=== PATIENT | male | born 1985 | race African-American/Black ===

== ENCOUNTER 2021-09-07 14:38 | Emergency (ER) | payer OTHER ==
[~2021-09-07] VITALS: Ht 170.2 cm; Wt 74.0 kg
[2021-09-07] MEDS ORDERED: IBUPROFEN 600 MG TABLET. PO ONE (15:30)
--- NOTE | 2021-09-07 16:07 | RAD ---
EXAM: Chest, single view. HISTORY: Left rib pain. COMPARISON: None. FINDINGS: A frontal view of the chest obtained. There is no infiltrate, pleural effusion or pneumotho rax. The heart is normal in size. IMPRESSION: No acute osseous finding. Electronically signed by: Monse Joseph MD (09/07/2021 4:05 PM) [id number]
[2021-09-07 16:31] LABS: BASO % 1 % (0-3); EOS # 0.1 x10^3/uL (0.0-0.7); EOS % 3 % (0-3); HEMATOCRIT 44.7 % (39.0-53.0); HEMOGLOBIN 15.1 g/dL (13.0-17.5); LYMPH % 47 % (24-48); MEAN CORPUSCULAR HEMOGLOBIN 32 pg (25-35); MEAN CORPUSCULAR HGB CONC 34 g/dL (31-37); MEAN CORPUSCULAR VOLUME 96 fL (79-100); MONO # 0.4 x10^3/uL (0.0-1.1); MONO % 8 % (0-9); NEUT # 1.7 x10^3uL (1.8-7.7); NEUT % 41 % (31-73); PLATELET COUNT 270 x10^3/uL (140-400); RED BLOOD COUNT 4.65 x10^6/uL (4.30-5.70); RED CELL DISTRIBUTION WIDTH 12.9 % (11.5-14.5); WHITE BLOOD COUNT 4.2 x10^3/uL (4.0-11.0)
--- NOTE | 2021-09-07 16:33 | PHYS DOC ---
Past History Past Surgical History: No Surgical History Alcohol Use: None General Adult EDM: Chief Complaint: RIB PAIN HPI: HPI: Patient is a 36-year-old male presents with left-sided chest pain. Patient reports pain is aggravated with movement and taking a deep breath. Denies injury. Denies recent illness. Denies cough or shortness of breath. No fevers. No medical history. Denies tobacco use. Review of Systems: Review of Systems: ROS At least 10 ROS systems have been reviewed and are negative except as documented in the HPI. General: Negative except as outlined in HPI above. Skin: Negative except as outlined in HPI above. HEENT: Negative except as outlined in HPI above. Neck: Negative except as outlined in HPI above. Respiratory: Negative except as outlined in HPI above.. Cardiovascular: Negative except as outlined in HPI above. Abdomen: Negative except as outlined in HPI above. : Negative except as outlined in HPI above. Back/MSK: Negative except as outlined in HPI above. Neuro: Negative except as outlined in HPI above. Psych: Negative except as outlined in HPI above. Current Medications: Current Meds: Current Medications Medications (Trade) Dose Ordered Sig/Bert Start Time Stop Time Status Last Admin Dose Admin Ibuprofen (Motrin) 600 mg 1X ONCE 09/07/21 15:30 09/07/21 15:37 DC 09/07/21 15:30 600 MG Allergies: Allergies: Allergies Coded Allergies Type Severity Reaction Last Updated Verified No Known Drug Allergies 09/07/21 No Physical Exam: PE: Constitutional: Well developed, well nourished, no acute distress, non-toxic appearance. [] HENT: Normocephalic, atraumatic, bilateral external ears normal, oropharynx moist, no oral exudates, nose normal. [] Eyes: PERRLA, EOMI, conjunctiva normal, no discharge. [] Neck: Normal range of motion, no tenderness, supple, no stridor. [] Cardiovascular:Heart rate regular rhythm, no murmur [] Lungs & Thorax: Bilateral breath sounds clear to auscultation [] Abdomen: Bowel sounds normal, soft, no tenderness, no masses, no pulsatile masses. [] Skin: Warm, dry, no erythema, no rash. [] Back: No tenderness, no CVA tenderness. [] Extremities: No tenderness, no cyanosis, no clubbing, ROM intact, no edema. [] Neurologic: Alert and oriented X 3, normal motor function, normal sensory function, no focal deficits noted. [] Psychologic: Affect normal, judgement normal, mood normal. [] Current Patient Data: Vital Signs: Vital Signs Date Time Temp Pulse Resp B/P (MAP) Pulse Ox O2 Delivery O2 Flow Rate FiO2 09/07/21 15:09 97.5 67 16 137/72 (93) 98 Room Air EKG: EKG: [] Sinus rhythm. Heart rate 55 bpm. Radiology/Procedures: Radiology/Procedures: []EXAM: Chest, single view. HISTORY: Left rib pain. COMPARISON: None. FINDINGS: A frontal view of the chest obtained. There is no infiltrate, pleural effusion or pneumothorax. The heart is normal in size. IMPRESSION: No acute osseous finding. Electronically signed by: Monse Joseph MD (09/07/2021 4:05 PM) [id number] Exam: CT of chest with contrast INDICATION: Left-sided pain TECHNIQUE: Sequential axial images through the chest obtained following the administration of 90 mL of Isovue-370 IV contrast. Sagittal and coronal reformatted images were reconstructed from the axial data and reviewed. 3-D reformatted images were reconstructed from the axial data and reviewed. Exposure: One or more of the following in the visualized dose reduction techniques were utilized for this examination: 1. Automated exposure control 2. Adjustment of the MA and/or KV according to patient size 3. Use of iterative of reconstructive technique Comparisons: Chest x-ray same day FINDINGS: Visualized portions of the thyroid are unremarkable. No enlarged mediastinal lymph nodes are identified. Heart size is normal. No pericardial effusion. Thoracic aorta has a normal course and caliber. Pulmonary artery is not enlarged. No pulmonary embolus identified within the main, lobar or segmental pulmonary arteries. Airways are patent. No consolidation or pneumothorax. No suspicious lung nodules. No pleural effusion or thickening. Visualized upper abdomen is unremarkable. No suspicious osseous lesions or acute fractures. IMPRESSION: No pulmonary embolus identified within the main, lobar or segmental pulmonary arteries. Electronically signed by: Elizabeth Dao MD (09/07/2021 5:40 PM) [facility] Heart Score: C/O Chest Pain: Yes HEART Score for Chest Pain: HEART Score for Chest Pain Response (Comments) Value History Slighlty/Non-Suspicious 0 ECG Normal 0 Age < 45 0 Risk Factors No Risk Factors 0 Troponin < Normal Limit 0 Total 0 Risk Factors: Risk Factors: DM, Current or recent (<one month) smoker, HTN, HLP, family history of CAD, obesity. Risk Scores: Score 0 - 3: 2.5% MACE over next 6 weeks - Discharge Home Score 4 - 6: 20.3% MACE over next 6 weeks - Admit for Clinical Observation Score 7 - 10: 72.7% MACE over next 6 weeks - Early Invasive Strategies Course & Med Decision Making: Course & Med Decision Making Pertinent Labs and Imaging studies reviewed. (See chart for details) [] 36-year-old presents with left-sided chest pain. Work-up in ER consisted of chest x-ray, labs, troponin, D-dimer. All labs unremarkable. Heart score of 0. D-dimer mildly elevated. CTA ordered to rule out PE. CTA was unremarkable. Discussed results with patient. Advised patient he most likely is having chest wall pain. Ibuprofen and Tylenol for discomfort. Discussed return precautions in length with patient. Patient verbalizes understanding of discharge instructions. Luis Disclaimer: Luis Disclaimer: This electronic medical record was generated, in whole or in part, using a voice recognition dictation system. Departure Departure: Impression: Primary Impression: Chest wall pain Disposition: HOME / SELF CARE / HOMELESS Condition: STABLE Referrals: FELICIANO JOHNS MD (PCP) Patient Instructions: Chest Wall Pain, [id number] Additional Instructions: You are seen in the emergency room for chest pain. All of your labs are unremarkable. All imaging was also unremarkable. You most likely have chest wall pain. You can take ibuprofen at home to help with discomfort. Please follow-up with your PCP for further management. You need to return to the emergency room if you have worsening symptoms or concerns such as shortness of breath, increase in pain. EMERGENCY DEPARTMENT GENERAL DISCHARGE INSTRUCTIONS Thank you for coming to [facility] (ED) today and trusting us with you care. We trust that you had a positivie experience in our Emergency Department. If you wish to speak to the department management, you may call the director at [phone]. YOUR FOLLOW UP INSTRUCTIONS ARE FOLLOWS: 1. Do you have a private Doctor? If you do not have a private doctor, please ask for a resource list of physicians or clinics that may be able to assist you with follow up care. 2. The Emergency Physician has interpreted your x-rays. The X-Ray specialist will also review them. If there is a change in the findings, you will be notified in 48 hours when at all possible. 3. A lab test or culture has been done, your results will be reviewed and you will be notified if you need a change in treatment. ADDITIONAL INSTRUCTIONS AND INFORMATION: 1. Your care today has been supervised by a physician who is specially trained in emergency care. Many problems require more than one evaluation for a complete diagnosis and treatment. We recommend that you schedule your follow up appointment as recommended to ensure complete treatment of you illness or injury. If you are unable to obtain follow up care and continue to have a problem, or if your condition worsens, we recommend that you return to the ED. 2. We are not able to safely determine your condition over the phone nor are we able to give sound medical advice over the phone. For these safety reasons, if you call for medical advice we will ask you to come to the ED for further evaluation. 3. If you have any questions regarding these discharge instructions please call the ED at [phone]. SAFETY INFORMATION: In the interest of safety, wellness, and injury prevention; we encourage you to wear your sealbelt, if you smoke; quite smoking, and we encourage family to use a protective helmet for bicycling and other sporting events that present an increased risk for head injury. IF YOUR SYMPTOMS WORSEN OR NEW SYMPTOMS DEVELOP, OR YOU HAVE CONCERNS ABOUT YOUR CONDITION; OR IF YOUR CONDITION WORSENS WHILE YOU ARE WAITING FOR YOUR FOLLOW UP A PPOINTMENT; EITHER CONTACT YOUR PRIMARY CARE DOCTOR, THE PHYSICIAN WHOSE NAME AND NUMBER YOU WERE GIVEN, OR RETURN TO THE ED IMMEDIATELY. PABLO VALENTIN APRN Sep 07, 2021 16:33
[2021-09-07 16:36] LABS: CALCIUM 9.3 mg/dL (8.5-10.1); CREATININE 0.9 mg/dL (0.7-1.3); GFR 114.9; POTASSIUM 4.6 mmol/L (3.5-5.1)
[2021-09-07] MEDS ORDERED: IOHEXOL 350 MG/ML 100 ML VIAL. IV ONE (17:15)
--- NOTE | 2021-09-07 17:42 | RAD ---
Exam: CT of chest with contrast INDICATION: Left-sided pain TECHNIQUE: Sequential axial images through the chest obtained following the administration of 90 mL o f Isovue-370 IV contrast. Sagittal and coronal reformatted images were reconstructed from the axial d lukasz and reviewed. 3-D reformatted images were reconstructed from the axial data and reviewed. Exposure: One or more of the following in the visualized dose reduction techniques were utilized for this examination: 1. Automated exposure control 2. Adjustment of the MA and/or KV according to patient size 3. Use of iterative of reconstructive technique Comparisons: Chest x-ray same day FINDINGS: Visualized portions of the thyroid are unremarkable. No enlarged mediastinal lymph nodes are identifi ed. Heart size is normal. No pericardial effusion. Thoracic aorta has a normal course and caliber. Pulmon everardo artery is not enlarged. No pulmonary embolus identified within the main, lobar or segmental pulmo nary arteries. Airways are patent. No consolidation or pneumothorax. No suspicious lung nodules. No pleural effusion or thickening. Visualized upper abdomen is unremarkable. No suspicious osseous lesions or acute fractures. IMPRESSION: No pulmonary embolus identified within the main, lobar or segmental pulmonary arteries. Electronically signed by: Elizabeth Dao MD (09/07/2021 5:40 PM) [facility]
[2021-09-07 18:24] VITALS: BP 132/70
--- NOTE | 2021-09-07 20:50 | EKG ---
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
== END 2021-09-07 18:24 | disposition home or self-care (01) ==
LOC: ER 14:38
DX: R07.89 Other chest pain (principal)
CPT/HCPCS: 36415; 71045; 71275; 80048; 84484; 85025; 85379; 93005; 99285; Q9967